=== PATIENT | female | born 1975 | race African-American/Black ===

== ENCOUNTER 2024-11-06 09:54 | Emergency (ER) | payer OTHER ==
[~2024-11-06] VITALS: Ht 165.1 cm; Wt 82.0 kg
[2024-11-06 10:02] VITALS: BP 169/111; PULSE 65; RESP 18; TEMP 98.3; O2SAT 96; O2SAT 98
[2024-11-06] MEDS: HYDROCODONE/ACETAMINOPHEN 10/325MG TABLET PO ONE (10:28)
[2024-11-06] MEDS: KETOROLAC 30MG/ML VIAL IM ONE (10:29)
[2024-11-06] MEDS: LIDOCAINE HCL 1% 20ML VIAL INFIL ONE (10:42)
== END 2024-11-06 13:08 | disposition home or self-care (01) ==
LOC: ER 09:54
DX: S63.257A Unspecified dislocation of left little finger, initial encounter (principal); Z88.5 Allergy status to narcotic agent; W18.30XA Fall on same level, unspecified, initial encounter; Y93.89 Activity, other specified; Y92.89 Other specified places as the place of occurrence of the external cause; Y99.8 Other external cause status
CPT/HCPCS: 99284; 26770; 73140; 96372; J1885; J3490